=== PATIENT | male | born 1990 | race Caucasian/White ===

== ENCOUNTER 2020-09-29 15:55 | Emergency (ER) | payer OTHER, SELFPAY ==
[2020-09-29 16:55] VITALS: BP 133/73; PULSE 75; RESP 18; TEMP 37; O2SAT 98; BMI 25.8
--- NOTE | 2020-09-29 18:20 | ED_ITS ---
HPI - Back Pain/Injury General Chief Complaint: Back Pain/Injury Stated Complaint: back injury - work related Time Seen by Provider: 09/29/20 18:20 Source: patient, family, RN notes reviewed and old records reviewed Mode of arrival: ambulatory Limitations: no limitations History of Present Illness HPI Narrative: 30 year-old male here today after sustaining a work injury. Patient reports that he was bending over in a she in for 2 hours in the same position and when he was unable to stand up straight. Reports that he does have a muscle spasm of lower paraspinal muscles bilaterally. Patient denies any other injuries. Related Data Previous Rx's Medication Instructions Recorded cyclobenzaprine 10 mg PO BEDTIME PRN #10 tab 09/29/20 ibuprofen 600 mg PO Q8H PRN #20 tab 09/29/20 Allergies Allergy/AdvReac Type Severity Reaction Status Date / Time Latex, Natural Rubber Allergy Rash Verified 09/29/20 19:27 Review of Systems Review of Systems: Constitutional : No Weight loss, No Fever, No Chills, No Night Sweats, No Fatigue, No Malaise ENT/Mouth : No Hearing loss, No Ear Pain, No Nasal Congestion, No Sinus Pain, No Hoarseness, No sore throat, No Rhinorrhea, No Swallowing Difficulty Eyes: No Eye Pain, No Swelling, No Redness, No Foreign Body, No Discharge, No Vision Changes Cardiovascular : No Chest Pain, No SOB, No Dyspnea on Exertion, No Orthopnea, No Edema, No Palpitations Respiratory : No Cough, No Sputum, No Wheezing, No Smoke Exposure, No Dyspnea Gastrointestinal : No Nausea, No Vomiting, No Diarrhea, No Constipation, No abdominal Pain, No Hematochezia, No Melena Genitourinary : no irregular bleeding, No Dysuria, No Urinary Frequency, No Hematuria, No Urinary Incontinence, No Urgency, No Flank Pain, No Urinary Flow Changes, No Hesitancy Musculoskeletal : No joint pain, Myalgias, No Joint Swelling Skin : No Skin Lesions, No rash Neuro : No Weakness, No Numbness, No Paresthesias, No Loss of Consciousness, No Dizziness, No Headache Psych : No Anxiety/Panic, No Depression, No SI/HI/AH/VH, No Social Issues, Heme/Lymph: No Bruising, No Bleeding,No Lymphadenopathy Endocrine : No Polyuria, No Polydipsia, No Temperature Intolerance Yes all other systems are reviewed and are negative [facility] Social History Social History Advance Directives: No Advance Directives Information Provided: Yes Physical Exam Vital Signs: Vital Signs: Last Vital Signs Temp 98.6 F 09/29/20 16:55 Pulse 75 09/29/20 16:55 Resp 18 09/29/20 16:55 BP 133/73 09/29/20 16:55 Pulse Ox 98 09/29/20 16:55 Body Mass Index 25.8 Const: General: healthy appearing, no acute distress and well developed Nutritional Appearance: well nourished Orientation/consciousness: patient oriented x3 Neck: Neck: Yes normal visual inspection, Yes full ROM and Yes trachea midline Thyroid: Thyroid normal Resp: Auscultation: clear to auscultation bilaterally Cardio: Rate: regular rate Rhythm: regular rhythm GI: Inspection: Yes normal to inspection and No distended Palpation (GI): No hepatosplenomegaly present Auscultation: normal bowel sounds Back/Spine/Pelvis: Other: Bilateral lumbar paraspinal muscle tenderness Skin: General skin exam: elasticity normal, turgor normal and dry skin Neuro: General: patient oriented x3 Course Course Course Narrative: 30-year-old male here today after sustaining a work injury. Patient was bending over in a she in in the fact you for 2 hours and he was unable to stand up straight. Reports bilateral lumbar paraspinal muscles spasm. Will medicate with ibuprofen and cyclobenzaprine. If patient will have relief and pain will send him home with both medications. Reevaluation(s) Reevaluation #1: Patient reports he is feeling better. I will have him go home with cyclobenzaprine and ibuprofen. Patient will follow-up with work connection on Friday Discharge Plan Discharge Clinical Impression: Strain of lumbar region Patient Disposition: Home, Self-Care Instructions: Low Back Strain (ED) Additional Instructions: You were seen here today after pulling your lower back muscles. You do had muscle spasm of your lower back. You were giving muscle relaxant and ibuprofen. I will be sending you home with prescription for muscle relaxant and ibuprofen. Please make sure that you do not drive or operate any heavy machinery or drink alcohol while taking muscle relaxants. Please take ibuprofen with food. Please follow-up with work connection on Friday to return back to work. Please call to make appointment at [phone]. You may return to emergency department if you experience worsening symptoms or if you experience any other concerning symptoms. Prescriptions: New cyclobenzaprine 10 mg tablet 10 mg PO BEDTIME PRN (Reason: muscle spasm) Qty: 10 RF: 0 ibuprofen 600 mg tablet 600 mg PO Q8H PRN (Reason: pain) Qty: 20 RF: 0 Stand Alone Forms: Work/School Release Interventions: ED Discharge Assessment Last Done: 09/29/20 19:44 Discharge Date/Time: 09/29/20 19:45
[2020-09-29] MEDS: Cyclobenzaprine HCl 10 MG TABLET PO (19:07)
[2020-09-29] MEDS: Ibuprofen 600 MG TABLET PO (19:07)
== END 2020-09-29 19:45 | disposition home or self-care (01) ==
PROVIDERS: Emergency Provider Internal Medicine
DX: S39.012A Strain of muscle, fascia and tendon of lower back, initial encounter (principal); X50.1XXA Overexertion from prolonged static or awkward postures, initial encounter; Y93.9 Activity, unspecified; Y92.89 Other specified places as the place of occurrence of the external cause; Y99.0 Civilian activity done for income or pay
CPT/HCPCS: 99283; 99284

== ENCOUNTER 2023-02-10 11:23 | Outpatient (REF) | payer BC, MEDICAID, SELFPAY ==
[2023-02-10 11:55] LABS: MANUAL DIFF FLAG NO
[2023-02-10 11:59] LABS: Basophils Absolute Auto 0.1 X10*3/uL (0.0-0.2); Eosinophils Absolute Auto 0.1 X10*3/uL (0.0-0.4); Eosinophils Percent Auto 2.8 % (0-4); Hematocrit 46.6 % (42.0-52.0); Hemoglobin 15.7 g/dl (14.0-18.0); Imm Gran Abs Auto 0.02 X10*3/uL (0.00-0.03); Imm Gran Pct Auto 0.5 % (0.0-0.4); Lymphocytes Absolute Auto 1.4 X10*3/uL (1.2-4.9); Lymphocytes Percent Auto 36.2 % (20-40); Mean Corpuscular HGB Conc 33.7 g/dl (31.0-36.0); Mean Corpuscular Hemoglobin 29.9 pg (27.0-33.0); Mean Corpuscular Volume 88.8 fL (80.0-98.0); Mean Platelet Volume 10.4 fL (9.4-12.4); Monocytes Absolute Auto 0.4 X10*3/uL (0.1-1.2); Monocytes Percent Auto 10.8 % (2-11); Neutrophils Absolute Auto 1.9 x10*3/uL (2.0-8.3); Neutrophils Percent Auto 47.7 % (45-73); Platelet Count 362 X10*3/uL (160-400); Red Blood Count 5.25 X10*6/uL (4.60-5.80); Red Cell Distribution Width 13.1 % (11.0-16.0)
[2023-02-10 12:09] LABS: Estimated Average Glucose 97 mg/dL
[2023-02-10 12:17] LABS: Alanine Aminotransferase 20 U/L (0-40); Albumin Level 4.3 g/dL (3.5-5.0); Alkaline Phosphatase 69 U/L (39-117); Anion Gap 13 (12-20); Aspartate Amino Transferase 21 U/L (5-37); Bilirubin Direct 0.2 mg/dL (0.0-0.5); Bilirubin Total 0.5 mg/dL (0.0-1.0); Blood Urea Nitrogen 9 mg/dL (9-16); Calcium 9.1 mg/dL (8.4-10.2); Carbon Dioxide 26 mmol/L (22-29); Chloride 103 mmol/L (96-108); Cholesterol 113 mg/dL (<200); Estimated Glomerular Filt Rate > 60; Glucose Random 93 mg/dL (60-115); HDL Cholesterol 36 mg/dL (>40); LDL Cholesterol Calculated 72 mg/dL (<100); Potassium 4.1 mmol/L (3.3-5.1); Sodium 138 mmol/L (135-145); Total Protein 7.5 g/dL (6.5-8.0); Triglycerides 28 mg/dL (<150)
[2023-02-10 12:35] LABS: HIV AB/AG Nonreactive (Nonreactive); HIV Num 1 0.04 S/CO (0.00-0.99); ~HepC Num1 0.06 S/CO (0.00-0.79); ~Hepatitis C Antibody Nonreactive (Nonreactive)
== END 2023-02-10 11:24 | disposition home or self-care (01) ==
LOC: HO.HHCL 11:23
PROVIDERS: Visit Provider Internal Medicine
DX: Z11.4 Encounter for screening for human immunodeficiency virus [HIV] (principal); I10 Essential (primary) hypertension; I87.2 Venous insufficiency (chronic) (peripheral); I83.813 Varicose veins of bilateral lower extremities with pain
CPT/HCPCS: 36415; 80048; 80061; 80076; 83036; 85025; 86803; 87389

== ENCOUNTER 2024-07-29 10:25 | Outpatient (REF) | payer BC, SELFPAY ==
[2024-07-29 11:23] LABS: MANUAL DIFF FLAG NO
[2024-07-29 11:35] LABS: Basophils Absolute Auto 0.1 X10*3/uL (0.0-0.2); Basophils Percent Auto 1.4 % (0-2); Eosinophils Absolute Auto 0.1 X10*3/uL (0.0-0.4); Eosinophils Percent Auto 1.8 % (0-4); Hematocrit 44.2 % (42.0-52.0); Hemoglobin 14.9 g/dl (14.0-18.0); Imm Gran Abs Auto 0.01 X10*3/uL (0.00-0.03); Imm Gran Pct Auto 0.2 % (0.0-0.4); Lymphocytes Absolute Auto 1.3 X10*3/uL (1.2-4.9); Lymphocytes Percent Auto 25.9 % (20-40); Mean Corpuscular HGB Conc 33.7 g/dl (31.0-36.0); Mean Corpuscular Hemoglobin 29.4 pg (27.0-33.0); Mean Corpuscular Volume 87.4 fL (80.0-98.0); Mean Platelet Volume 10.6 fL (9.4-12.4); Monocytes Absolute Auto 0.5 X10*3/uL (0.1-1.2); Monocytes Percent Auto 9.9 % (2-11); Neutrophils Percent Auto 60.8 % (45-73); Platelet Count 329 X10*3/uL (160-400); Red Blood Count 5.06 X10*6/uL (4.60-5.80); Red Cell Distribution Width 13.7 % (11.0-16.0); White Blood Count 4.9 X10*3/uL (4.8-10.8)
[2024-07-29 12:05] LABS: HIV AB/AG Nonreactive (Nonreactive); HIV Num 1 0.07 S/CO (0.00-0.99); ~HepC Num1 0.16 S/CO (0.00-0.79); ~Hepatitis C Antibody Nonreactive (Nonreactive)
[2024-07-29 12:10] LABS: Estimated Average Glucose 108 mg/dL; Hemoglobin A1C 142.9855 umol/L; Hemoglobin A1c % 5.4 % (<6.0); Total Hemoglobin (HGBA1C) 4033.1411 umol/L
[2024-07-29 12:30] LABS: TSH reflex Free T4 0.51 uIU/mL (0.32-4.0); Vitamin D 25-OH Total 9.6 ng/mL (>30)
[2024-07-29 12:36] LABS: Alanine Aminotransferase 26 U/L (0-40); Albumin Level 4.1 g/dL (3.5-5.0); Alkaline Phosphatase 75 U/L (39-117); Anion Gap 10 (12-20); Aspartate Amino Transferase 26 U/L (5-37); Bilirubin Total 0.9 mg/dL (0.0-1.0); Blood Urea Nitrogen 8 mg/dL (9-16); Calcium 9.1 mg/dL (8.4-10.2); Carbon Dioxide 30 mmol/L (22-29); Chloride 103 mmol/L (96-108); Cholesterol 129 mg/dL (<200); Estimated Glomerular Filt Rate > 60; Glucose Random 95 mg/dL (60-115); HDL Cholesterol 44 mg/dL (>40); LDL Cholesterol Calculated 77 mg/dL (<100); Potassium 4.4 mmol/L (3.3-5.1); Sodium 139 mmol/L (135-145); Total Protein 7.3 g/dL (6.5-8.0); Triglycerides 43 mg/dL (<150)
== END 2024-07-29 10:26 | disposition home or self-care (01) ==
LOC: HO.HHCL 10:25
PROVIDERS: Visit Provider Internal Medicine
DX: G47.10 Hypersomnia, unspecified (principal); Z13.1 Encounter for screening for diabetes mellitus; Z13.6 Encounter for screening for cardiovascular disorders
CPT/HCPCS: 36415; 80053; 80061; 82306; 83036; 84443; 85025; 86803; 87389

== ENCOUNTER → 2024-12-30 13:04 | Outpatient (REF) | payer BC, SELFPAY ==
--- OUTSIDE RECORDS SUMMARY | 2024-12-30 14:15 | XMS_ITS | Encounter Summary ---
Author Organization [facility] Address [address] [place] [phone] Care Team Providers Care Incinerator Operator Name Role Phone Natividad Gay MD Primary Care Provide r Reason for Visit * Reason Comments Callouses * Consultation (Routine) - Authorized Specialty Diagnoses / Procedures Referred By Fredrick vasquez Referred To Contact Podiatry / Orthopaedic Surgery Diagnoses Corns and callosities Natividad Gay MD [address] [phone] Phone: tel: fax: Jose Hayes DPM [address] [address] Phone: tel: fax: Referral ID Status Reason Start Date Expiration Date Visits Requested Visits Authorized [id number] Authorized Specialty Services Required 07/05/2024 07/05/2025 1 1 Encounter Details Date Type Department Care Team (Late st Contact Info) Description 12/30/2024 2:15 PM EDT Office Visit Orthopedic Surgery - [place] [address] [phone] Jose Hayes DPM [address] [address] Corns and callosities Social History Tobacco Use Types Packs/Day Years Used Date Smoking Tobacco: Never Assessed Sex and Gender Information Value Date Recorded Sex Assigned at Not on file Legal Sex Male 2:45 PM EDT Gender Identity Not on file Sexual Orientation Not on file documented as of this encounter Plan of Treatment Not on file documented as of this encounter Visit Diagnoses Diagnosis Corns and callosities documented in this encounter Orders Outpatient Referral Count Last Ordered Date Fir st Ordered Date AMB REFERRAL TO PODIATRY 1 12/30/2024 documented in this encounter Care Teams Incinerator Operator Relationship Specialty Start Date End Date Natividad Gay MD [address] [phone] PCP - General Internal Medicine 07/05/24 documented as of this encounter
--- OUTSIDE RECORDS SUMMARY | 2024-12-30 15:08 | XMS_ITS | Encounter Summary ---
Author Organization [employer] Address 75 [facility] [address] [place] [address] Care Team Providers Care Fashion Director Name Role Phone Natividad Gay MD Primary Care Provide r Reason for Visit * Reason Comments Med Refill Encounter Details Date Type Department Care Team (Late st Contact Info) Description 11/10/2022 Refill [facility] [address] [place] [phone] Michael King MD [address] [place] [phone] Social History Tobacco Use Types Packs/Day Years Used Date Smoking Tobacco: Never Smokeless Tobacco: Never Sex and Gender Information Value Date Recorded Sex Assigned at Male 08/15/2022 1:34 PM EDT Legal Sex Male 1:25 PM EDT Gender Identity Male 08/15/2022 1:34 PM EDT Sexual Orientation Straight 08/15/2022 1: 34 PM EDT documented as of this encounter Plan of Treatment Upcoming Encounters Date Type Department Care Team (Late st Contact Info) Description 02/11/2025 1:30 PM EDT Office Visit [facility] [address] [place] [phone] Natividad Gay MD [address] [place] [phone] documented as of this encounter Visit Diagnoses Not on filedocumented in this encounter Care Teams Fashion Director Relationship Specialty Start Date End Date Natividad Gay MD [address] [place] [phone] PCP - General Internal Medicine 01/07/23 documented as of this encounter
--- OUTSIDE RECORDS SUMMARY | 2024-12-30 15:08 | XMS_ITS | Clinical Summary ---
Author Organization 175 [facility] Address 175 [place] [address] Phone Care Team Providers Care Gambreler Helper Name Role Phone Natividad Gay MD Primary Care Provide r Allergies Active Allergy Reactions Criticality Noted Date Comments Latex 08/15/2022 Encounters Date Type Department Care Team Description 12/30/2024 2:15 PM EDT Office Visit Orthopedic Surgery [facility] 250 175 [facility] [address] [place] [address] Jose Hayes, LAVON Corns and callosities from Last 3 Months Social History Tobacco Use Types Packs/Day Years Used Date Smoking Tobacco: Never Assessed Sex and Gender Information Value Date Recorded Sex Assigned at Not on file Legal Sex Male 2:45 PM EDT Gender Identity Not on file Sexual Orientation Not on file Plan of Treatment Health Maintenance Due Date Last Done Comments DTaP,Tdap,and Td Vaccines (1 - Tdap) 2009 Hepatitis B Vaccines (1 of 3 - 19+ 3-dose series) 2009 Depression Screening 04/14/2024 HIV Screening 07/06/2024 07/29/2024 Hepatitis C Screening 07/06/2024 07/29/2024 Social Influencers of Health Screening 07/06/2024 COVID-19 Vaccine (1 - 2023-2 5 season) 2024 Influenza Vaccine (#1) 2024 RSV Immunization Adult Patie nts (1 - 1-dose 75+ series) 2065 HIB Vaccines Aged Out No longer eligi ble based on patient's age to complete this topic HPV Vaccines Aged Out No longer eligi ble based on patient's age to complete this topic Hepatitis A Vaccines Aged Out No long er eligible based on patient's age to complete this topic IPV Vaccines Aged Out No longer eligi ble based on patient's age to complete this topic MMR Vaccines Aged Out No longer eligi ble based on patient's age to complete this topic Meningococcal ACWY Vaccine Aged Out N o longer eligible based on patient's age to complete this topic Meningococcal B Vaccine Aged Out No l onger eligible based on patient's age to complete this topic Pneumococcal Vaccine: Pediat rics (0 to 5 Years) and At-Risk Patients (6 to 49 Years) Aged Out No longer eligi ble based on patient's age to complete this topic RSV Immunization Patients Un nora 20 months Aged Out No longer eligible b ased on patient's age to complete this topic Varicella Vaccines Aged Out No longer eligible based on patient's age to complete this topic Insurance [facility] Care Teams Gambreler Helper Relationship Specialty Start Date End Date Natividad Gay MD [address] [place] [phone] PCP - General Internal Medicine 07/05/24
--- OUTSIDE RECORDS SUMMARY | 2024-12-30 15:08 | XMS_ITS | Encounter Summary ---
Author Organization [employer] Address 75 [facility] 7[address] [place] [address] Care Team Providers Care Glass Furnace Operator Name Role Phone Natividad Gay MD Primary Care Provide r Reason for Visit * Reason Onset Date Comments New Patient Appt 10/22/2022 Encounter Details Date Type Department Care Team (Late Contact Info) Description 10/22/2022 Telephone [facility] [address] [place] [address] Robert Parr MD 230 [place] [address] New Patient Appt Social History Tobacco Use Types Packs/Day Years Used Date Smoking Tobacco: Never Smokeless Tobacco: Never Sex and Gender Information Value Date Recorded Sex Assigned at Male 08/15/2022 1:34 PM EDT Legal Sex Male 1:25 PM EDT Gender Identity Male 08/15/2022 1:34 PM EDT Sexual Orientation Straight 08/15/2022 1: 34 PM EDT documented as of this encounter Miscellaneous Notes * Telephone Encounter - Magdalena Niño - 10/22/2022 5:10 PM EDT New Patients Par Magdalena Colindres called to schedule New patient appt, pt did not answer left voicemail to give a call at [phone]. documented in this encounter Plan of Treatment Upcoming Encounters Date Type Department Care Team (Late Contact Info) Description 02/11/2025 1:30 PM EDT Office Visit [facility] [address] [place] [address] Natividad Gay MD 230 [place] [address] documented as of this encounter Visit Diagnoses Not on filedocumented in this encounter Care Teams Glass Furnace Operator Relationship Specialty Start Date End Date Natividad Gay MD [address] [place] [phone] PCP - General Internal Medicine 01/07/23 documented as of this encounter
--- OUTSIDE RECORDS SUMMARY | 2024-12-30 15:08 | XMS_ITS | Clinical Summary ---
Author Organization [employer] Address 75 [facility] 7t [place] [address] Care Team Providers Care Annealing Furnace Tender Name Role Phone Natividad Gay MD Primary Care Provide r Allergies Active Allergy Reactions Criticality Noted Date Comments Latex 08/15/2022 Medications fluticasone (Flonase Allergy Relief) 50 MCG/ACT nasal spray Administer 1 spray into each nostril in the morning. Shake gently. Before first use, prime pump. After use, clean tip and replace cap. 16 g 1 3 Active acetaminophen (Tylenol) 500 MG tablet Take 2 tablets (1,000 mg) by mouth every 6 (six) hours if needed for moderate pain or fever for up to 25 doses. 50 tablet 3 Active ibuprofen 400 MG tablet Take 1 tablet (400 mg) by mouth every 6 (six) hours if needed for moderate pain or fever for up to 30 doses. 30 tablet 3 Active pseudoephedrine (Sudafed) 30 MG tablet Take 1 tablet (30 mg) by mouth every 4 (four) hours if needed for congestion for up to 10 days. 30 tablet 5 Active Mometasone Furoate (Asmanex HFA) 200 MCG/ACT aerosol Use Inhaled BID 13 g 3 5 Active albuterol 108 (90 Base) MCG/ACT inhalerIndication s:Mild intermittent asthma without complication Inhale 2 puffs every 4 (four) hours if needed for wheezing. 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 08/10/2024 Assessment & Plan (08/10/2024 12:15 PM EDT): Apply heat on affected area Acetaminophen as needed I will refer patient to physical therapy Vitamin D deficiency 08/10/2024 Assessment & Plan (08/10/2024 12:16 PM EDT): Continue with vitamin D supplement I will recheck levels on next appointment Loud snoring 06/17/2024 Callus of foot 06/11/2024 Assessment & Plan (08/10/2024 12:16 PM EDT): Follow-up with podiatry Hypersomnia 06/11/2024 Assessment & Plan (08/10/2024 12:15 PM EDT): I advised patient not to miss his sleep studies as soon as I have results I will contact him back Witnessed episode of apnea 06/11/2024 Mild intermittent asthma without complication COVID-19 virus infection 04/29/2023 Assessment & Plan (04/29/2023 3:04 PM EST): Drink plenty of fluids and rest Quarantine as per CDC guidelines Acetaminophen PRN Paxlovid prescribed If SOB, confusion, chest pain.. got to emergency room or call ambulance Primary hypertension 02/10/2023 Assessment & Plan (02/10/2023 11:08 AM EDT): Maintenance: BMP: ordered Lipid Panel: ordered -I started on amlodipine 2.5mg RTC for nurse visit if BP not at goal plan is to increase the dose - Aerobic exercise to reduce BP. Initial goal of 30 min walk 3-5x/week. Increase as tolerated. - low-sodium diet (goal: <2g/day) and heart healthy diet such as DASH to reduce BP and prevent ASCVD. - Home BP monitoring 1-2 x day with goal of <140/90. - Seek immediate medical attention for chest pain, palpitations, SOB, syncope, or sudden changes in mental status. - Do not change or discontinue current prescriptions without first consulting health care provider Venous insufficiency 02/10/2023 Assessment & Plan (08/10/2024 12:15 PM EDT): Follow-up with vascular specialist Varicose veins of both lower extremities with pa in 02/10/2023 Encounters Date Type Department Care Team Description 10/26/2024 Telephone [facility] [address] [place] [phone] Natividad Gay MD Call back request from Last 3 Months Social History Tobacco Use Types Packs/Day Years Used Date Smoking Tobacco: Never Passive Smoke Exposure: Never Smokeless Tobacco: Never Tobacco Cessation:Counseling Given: Not Answered Alcohol Use Standard Drinks/Week Comments Never 0 (1 standard drink = 0.6 oz pur e alcohol) Depression Answer Date Recorded Patient Health Questionnaire-9 Score 0 06/11/2024 Patient Health Questionnaire-9 Score 0 06/11/2024 Last PHQ-9: Questionnaire Data Not on file 0 06/11/2024 Housing Stability Answer Date Recorded What is your housing situation today? I have jonathan zully 06/11/[address] you li ve. Do you have problems with any of the following? None of the above 06/11/2024 Food Insecurity Answer Date Recorded Within the past 12 months, y ou worried that your food would run out before you got money to buy more: Never True 06/11/2024 Within the past 12 months,th e food you bought just didn't last and you didn't have enough money to get more: Never True Transportation Answer Date Recorded In the past 12 months, has l ack of transportation kept you from medical appts, meetings, work or from getting things needed for daily living? No 06/11/2024 Utilities Answer Date Recorded In the past 12 months, has t he electric, gas, oil or water company threatened to shut off services in your home? No 06/11/2024 Depression Answer Date Recorded Patient Health Questionnaire-2 Score 0 06/11/2024 Internet Access Answer Date Recorded Internet Access Q1 No 06/11/2024 Internet Access Q2 I do not want or need it 05/16 Sex and Gender Information Value Date Recorded Sex Assigned at Male 08/15/2022 1:34 PM EDT Legal Sex Male 1:25 PM EDT Gender Identity Male 08/15/2022 1:34 PM EDT Sexual Orientation Straight 08/15/2022 1: 34 PM EDT Last Filed Vital Signs Vital Sign Reading Time Taken Comments Blood Pressure 129/80 06/11/2024 11:13 AM EST Pulse 77 06/11/2024 11:13 AM EST Temperature 35.9 C (96.7 F) 06/11/2024 11:13 AM EST Respiratory Rate 17 06/11/2024 11:1 3 AM EST Oxygen Saturation 99% 06/11/2024 11: 13 AM EST Inhaled Oxygen Concentration - - Weight 85.6 kg (188 lb 12.8 oz) 025 11:13 AM EST Height 180.3 cm (5' 11 ) 06/11/2024 11: 13 AM EST Body Mass Index 26.33 06/11/2024 11:13 AM EST Plan of Treatment Upcoming Encounters Date Type Department Care Team (Late st Contact Info) Description 02/11/2025 1:30 PM EDT Office Visit [facility] 230 [place] [address] Natividad Gay MD 230 [place] [address] Health Maintenance Due Date Last Done Comments Dental Oral Exam 1990 Dental Prophylaxis 1990 Dental X-Ray: Full Mouth 1990 Disability Screening 1990 Alcohol/Substance Use Screening 2002 Family Planning (PISQ) 2005 HPV Vaccines (1 - Male 3-dos e series) 2005 DTaP/Tdap/Td Vaccines (1 - Tdap) 2009 Hepatitis B Vaccines (1 of 3 - 19+ 3-dose series) 2009 Pneumococcal Vaccine: Pediatrics (0 to 5 Years) and At-Risk Patients (6 to 49) Years (1 of 2 - PCV) 2009 Dental X-Ray: Bitewings 03/13/2024 03/12/2023 COVID-19 Vaccine (1 - 2023-2 5 season) 2024 Influenza Vaccine (#1) 2024 Depression Screening 06/11/2025 06/11/2024, 06/11/2024 SDOH Screening 06/11/2025 06/11/2024 Tobacco Screening 06/11/2025 06/11/2024 Lipid Panel 07/29/2029 07/29/2024, 02/10/2023 Zoster Vaccines (1 of 2) 2040 RSV Patients and Patients Aged 60 years or older (1 - 1-dose 75+ series) 2065 HIV Screening Completed 07/29/2024, 02/10/2023 Hepatitis C Screening Completed 07/29/2024 , 02/10/2023 HIB Vaccines Aged Out No longer eligi [...] patient's age to complete this topic Meningococcal Vaccine Aged Out No sully joe eligible based on patient's age to complete this topic RSV under 20 months Aged Out No longe r eligible based on patient's age to complete this topic Rotavirus Vaccines Aged Out No longer eligible based on patient's age to complete this topic Procedures Procedure Name Priority Date/Time Associated Diagnosis Comments HEPATITIS C AB W/REFL TO HCV RNA, QN, PCR Routine 07/29/2024 10:27 AM EDT Hypersomnia HIV 1/2 ANTIGEN/ANTIBODY, FOURTH GENERATION W/RFL Routine 07/29/2024 10:27 AM EDT Hypersomnia LIPID PANEL, STANDARD Routine 07/29/2024 10:27 AM EDT Hypersomnia BITEWING - SINGLE RADIOGRAPHIC IMAGE Routine 03/12/2023 1:00 PM EST from Last 3 Months or Most Recently Relevant to Health Maintenance Results * Hepatitis C Antibody with Reflex to HCV, RNA, Quantitative, Real-Time PCR (07/29/2024 10:27 AM EDT) Hepatitis C Antibody Nonreactive Nonreactive [facility] Comment:Antibodies to HCV no t detected; does not exclude early acuteHCV infection. Blood Venous blood specimen / Unknown 07/29/2024 10:27 AM EDT 07/29/2024 11:19 AM EDT us Natividad Adam MD LAB BLOOD ORDERABLES Final Result Performing Organization Address City/[facility]/ZIP Co de Phone Number [facility] [address] [place] [address] [phone] * HIV-1/2 Antigen and Antibodies, Fourth Generation, with Reflexes (07/29/2024 10:27 AM EDT) HIV AB/AG Nonreactive Nonreactive [facility] Comment:HIV-1 p24 Ag and/or HIV-1/HIV-2 Ab not detected.A test result that is nonreactive does not exclude thepossibility of exposure to or infection with HIV-1 and/orHIV-2. Nonreactive results in this assay for individualswith prior exposure to HIV-1 and/or HIV-2 may be due toantigen and antibody levels that are below the limit ofdetection of this assay.The [employer] HIV Ag/Ab Combo assay result andsupplemental assay results should be interpreted inconjunction with the patient's clinical presentation,history and other laboratory results. If the results areinconsistent with clinical evidence, additional testing issuggested to confirm the result. Blood Venous blood specimen / Unknown 07/29/2024 10:27 AM EDT 07/29/2024 11:19 AM EDT us Natividad Adam MD LAB BLOOD ORDERABLES Final Result Performing Organization Address [facility]/ZIP Co de Phone Number [facility] [address] [place] [address] [phone] * Lipid Panel, Standard (07/29/2024 10:27 AM EDT) Triglycerides 43 <150 mg/dL [facility] Comment:Desirable Triglyceri de: less than 150 mg/dLBorderline High Triglyceride 150-199 mg/dLHigh Triglyceride: 200-499 mg/dLVery High Triglyceride: greater than or equal to 5OO mg/dL Cholesterol 129 <200 mg/dL [facility] Comment:Desirable Cholestero l: less than 200 mg/dLBorderline High Cholesterol: 200-239 mg/dLHigh Cholesterol: greater than 239 mg/dL LDL Cholesterol Calculated 77 <100 mg/dL [facility] Comment:Desirable LDL: less than 100 mg/dLNear Optimal/Above Optimal LDL: 110- 129 mg/dLBorderline High LDL: 130-159 mg/dLHigh LDL: 160-189 mg/dLVery High LDL: greater than or equal to 190 mg/dL HDL Cholesterol 44 >40 mg/dL [facility] Comment:Desirable HDL: great er than 40 mg/dL Note: This HDL assay may give artificially low results in patients with liver disease. Blood Venous blood specimen / Unknown 07/29/2024 10:27 AM EDT 07/29/2024 11:19 AM EDT Natividad Adam MD LAB BLOOD ORDERABLES Final Result [facility] [address] [place] [phone] from Last 3 Months or Most Recently Relevant to Health Maintenance Insurance [facility] MEDICAID STAND ADULT Care Teams Annealing Furnace Tender Relationship Specialty Start Date End Date Natividad Gay MD [address] [place] [phone] PCP - General Internal Medicine 01/07/23
== END ==
LOC: HO.SL 13:04
PROVIDERS: PCP Internal Medicine; Visit Provider Internal Medicine
DX: Z13.89 Encounter for screening for other disorder (principal)